=== PATIENT | male | born 1950 | race Caucasian/White ===

== ENCOUNTER → 2017-01-29 | Outpatient (CLI) | payer OTHER, MEDICARE ==
[~2017-01-29] MED LIST: OMEG10007 PO
[2017-01-29 11:13] VITALS: BP 162/86; PULSE 57; TEMP 36.4; O2SAT 99
--- NOTE | 2017-01-29 13:33 | DIAGNOSTIC IMAGING REPORT ---
BONE SCAN WHOLE BODY HISTORY: Prostate carcinoma PROSTATE CA RADIOTRACER: 22.1 mCi Tc-99m MDP STUDY/IMAGES: Planar anterior and posterior whole body imaging was performed 3 hours following the intravenous administration of radiotracer. COMPARISON: 07/26/2010 FINDINGS: Normal bilateral renal activity. Low-level activity of the mid tibial regions bilaterally unchanged from the prior exam. This appears to be a benign finding. All remaining components of the axial and appendicular skeleton are unremarkable. IMPRESSION: No evidence for metastatic bone disease. The above report was generated using voice recognition software. It may contain grammatical, syntax or spelling errors. Electronically signed by: Festus Geller M.D. 01/29/2017 1:32 PM Dictated Date/Time: 01/29/2017 1:30 PM
== END | disposition home or self-care (01) ==
LOC: C.NUCL 09:20
PROVIDERS: ATTEND Physician Assistant Medical
DX: C61 Malignant neoplasm of prostate (principal)

== ENCOUNTER → 2017-04-13 | Outpatient (CLI) | payer OTHER, MEDICARE ==
[~2017-04-13] MED LIST changes: +ASCO10003 PO; +CHOL1000 PO; +LEUP1INJ15 IM; +LEUPROLIDE ACETATE 22.5 MG KIT IM ONE; +MULT-506 PO; +PSYL48.59 PO
[2017-04-13 08:06] VITALS: BP 172/68; PULSE 71; TEMP 36.5; O2SAT 98
--- NOTE | 2017-04-13 09:40 | Radiation Oncology Follow-Up ---
Radiation Oncology Follow-Up Date of Visit Apr 13, 2017. Reason For Visit One-month follow-up and cancer survivorship care plan Radiation Completion Date finished 03-22-2017 , utilizing VMAT Diagnosis (1) Prostate cancer Status: Acute Onset Date: 07/15/2010 Location: both lobes of the prostate Histology Subtype: adenocarcinoma Stage: ll Permanent Comment: Rising PSA, pretreatment PSA 6.48 Status post ultrasound-guided biopsies 07/15/2010 Adenocarcinoma the prostate Kitzmiller 3+3 and 3+4 Status post robotic prostatectomy 09/12/2010 Stage pT2c [id number] Kitzmiller 3+3 Post prostatectomy rising PSA now at 0.67 The initiation of androgen deprivation with Lupron 22.5 mg IM 01/17/2017 plan for months therapy. This post completion of salvage radiation therapy 03/22/2017. He received 7020 cGy. Utilizing VMAT. 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 The patient initially presented with an elevated PSA in May 2010 which increases 6.48. The patient then underwent a transrectal ultrasound-guided biopsy of the prostate gland on 07/15/2010 which revealed prostate adenocarcinoma involving 9/14 cores. The highest Dorothy score was Kitzmiller 3+ 4. The patient ultimately elected to undergo radical prostatectomy by Dr. Ybarra at [facility] on 09/12/2010. Pathology revealed prostate adenocarcinoma that was Dorothy 3+3 involving both lobes with extensive involvement of the prostate gland (pT2c); there was no evidence of extracapsular extension, positive margins, lymphovascular space invasion or seminal vesicle invasion. 7 lymph nodes were excised and negative for metastatic carcinoma. The patient then had a follow-up PSA on 10/24/2010 which was undetectable at less than 0.01. The PSA was then 0.01 on 03/13/2011, 0.02 on 10/19/2011, 0.04 on 09/20/2012, 0.13 and 10/22/2013, 0.08 on 05/20/2014, 0.09 on 09/30/2015 and 0.67 on 12/01/2016. The patient sent this information to Dr. Ybarra at [facility] who recommended a consultation with radiation oncology. The patient elected to seek out a consultation for radiation oncology closer to his home and we are now seeing him in consultation. Treatment was reviewed with the patient and decision was made to undergo hormone suppression followed by radiation therapy. Radiation was complete 03/22. He received 7020 cGy. Interim History He has been doing well over the past month. He gives an AUA score of 6. He did not require any additional medications during treatment that were prescriptive. He does not require any [id number]-[id number] medications. He is not having any dysuria. He does have hot flashes from Lupron. The androgen deprivation was initiated 01/17/2017. He is due for and will receive a Lupron injection today. He had a PSA 04/11/2017 that was less than 0.02. Allergies Coded Allergies: Cefaclor (Verified Allergy, Unknown, RASH, 05/13/13) Home Medications Scheduled Ascorbic Acid (Vitamin C), 1 TAB PO DAILY Cholecalciferol (Vitamin D3), 5 TAB PO DAILY Fish Oil (Keller-3), 1 CAP PO DAILYBB Leuprolide Acetate (Lupron Depot), IM had dose 01/17/17 Multivitamin (Multivitamin), 1 TAB PO DAILY Review of Systems Gastrointestinal: Symptoms: WNL Oral: Symptoms: No Problems Respiratory: Symptoms: WNL Urinary: Symptoms: Nocturia Comments: nocturia 3 - 4 times Skin: Symptoms: No Problems Additional Notes: He completed a distress management report and answered "no" to all questions. Physical Exam Vital Signs Date Time Temp Pulse Resp B/P (MAP) Pulse Ox O2 Delivery O2 Flow Rate FiO2 04/13/17 08:06 36.5 71 16 172/68 98 Fatigue: None General Appearance: no apparent distress Eyes: normal inspection, EOMI ENT: normal ENT inspection, hearing grossly normal Respiratory/Chest: lungs clear, no respiratory distress, no accessory muscle use Cardiovascular: regular rate, rhythm, no gallop, no murmur Abdomen: non tender, soft, no organomegaly Neurologic/Psychiatric: no motor/sensory deficits, alert, normal mood/affect Skin: warm/dry Pain Management Patient Reports Pain: No Side: Bilateral Patient Preferred Pain Scale: 0 - 10 Initial Pain Intensity: 0.0 Pain Management Plan He denies pain therefore requires no pain management. Laboratory Laboratory Results: were reviewed Laboratory Comments: He had a PSA 04/11/2017 that was less than 0.02. Pathology Pathology Results: were reviewed, and pertinent findings noted in HPI Imaging Imaging Studies: not applicable Assessment & Plan Plan: He was seen today by Dr. Haley. Continue PSAs every 6 months. An order was given to her PSA prior to his next visit. Continue regular follow-up with his primary provider. The most recent PSAs were reviewed. He was given a copy of the reports. Today we completed a cancer survivorship care plan. A copy of the document was given to the patient. He was given a survivorship booklet. We asked him to return to our office in 6 months. He may call if he has any questions or concerns in the interim. He was given Lupron 22.5 mg IM today. He does take vitamin E to help the hot flashes. Assessment & Plan (Attending) I agree with note created by Carmen Real PA-C. I reviewed the patient's chart and information with her. I have examined and evaluated the patient. I reviewed relevant clinical information and answered the patient's and/or family' s questions. TEST ENG Total Time In Follow-Up I spent 20 minutes speaking to the patient performing examination. I spent 20 minutes reviewing information, preparing the survivorship document, and completing this note. AK Total Time (Attending) In Follow-Up I spent 15 minutes examining and counseling the patient. TEST ENG Copy To Jack Johnson III, CRNP; Sean Andrews MD, Urology; NORMA YBARRA M.D.
== END | disposition home or self-care (01) ==
LOC: C.ONC 07:59
PROVIDERS: ATTEND Physician Assistant Medical
DX: Z08 Encounter for follow-up examination after completed treatment for malignant neoplasm (principal); Z92.3 Personal history of irradiation; Z85.46 Personal history of malignant neoplasm of prostate